=== PATIENT | female | born 1945 | race Caucasian/White ===

== ENCOUNTER 2021-07-11 14:34 | Emergency (ER) | payer OTHER, MEDICAID ==
[~2021-07-11] VITALS: Ht 154.9 cm; Wt 67.6 kg
[2021-07-11] MEDS ORDERED: ATORVASTATIN CA80 MG PO (15:26)
[2021-07-11] MEDS ORDERED: ASPERCREME1 EACH TOP (15:26)
[2021-07-11] MEDS ORDERED: CARVEDILOL3.125 MG PO (15:26)
[2021-07-11] MEDS ORDERED: ASA81BEC PO (15:26)
[2021-07-11] MEDS ORDERED: PROAIR HFA8.5 GM INH (15:26)
[2021-07-11] MEDS ORDERED: NEURONTIN 300M300 M2 PO (15:27)
[2021-07-11] MEDS ORDERED: CYMBALTA30 MG PO (15:27)
[2021-07-11] MEDS ORDERED: CYMBALTA60 MG PO (15:27)
[2021-07-11] MEDS ORDERED: MAXZIDE-25 MG1 EACH PO (15:27)
[2021-07-11] MEDS ORDERED: LORAZEPAM 1 MG T1 MG PO (15:28)
[2021-07-11] MEDS ORDERED: PROTONIX40 M2 PO (15:28)
[2021-07-11] MEDS ORDERED: NORCO 10-325 T1 EACH PO (15:28)
[2021-07-11] MEDS ORDERED: PROMETHAZINE PO (15:30)
[2021-07-11] MEDS ORDERED: TIZANIDINE HCL2 M1 PO (15:30)
[2021-07-11 17:40] VITALS: BP 120/76
== END 2021-07-11 17:42 | disposition home or self-care (01) ==
LOC: M.ERS 14:34
DX: M25.561 Pain in right knee (principal); M25.571 Pain in right ankle and joints of right foot; F32.9 Major depressive disorder, single episode, unspecified; K21.9 Gastro-esophageal reflux disease without esophagitis; I10 Essential (primary) hypertension; E78.5 Hyperlipidemia, unspecified; Z90.710 Acquired absence of both cervix and uterus; Z79.82 Long term (current) use of aspirin; Z79.899 Other long term (current) drug therapy; Z88.5 Allergy status to narcotic agent; Z88.2 Allergy status to sulfonamides; Z88.8 Allergy status to other drugs, medicaments and biological substances; Z88.6 Allergy status to analgesic agent; Z91.030 Bee allergy status; Z91.038 Other insect allergy status; W10.8XXA Fall (on) (from) other stairs and steps, initial encounter; Y93.89 Activity, other specified; Y92.89 Other specified places as the place of occurrence of the external cause; Y99.8 Other external cause status